=== PATIENT | male | born 1970 | race Two or more races ===

== ENCOUNTER 2020-07-01 12:49 | Inpatient (IN) | payer OTHER ==
[~2020-07-01] VITALS: Ht 172.7 cm; Wt 89.5 kg
[2020-07-01 14:22] LABS: BASOPHILS % 1.4 % (0.0-2.0); EOSINOPHILS % 2.7 % (0.0-5.0); HEMATOCRIT. 41.1 % (42.0-52.0); HEMOGLOBIN. 13.3 g/dL (14.0-18.0); LYMPHOCYTES % 12.8 % (20.0-50.0); MEAN CORPUSCULAR HEMOGLOBIN 29.1 pg (28.0-32.0); MEAN CORPUSCULAR VOLUME 89.9 fL (80.0-94.0); MEAN PLATELET VOLUME 9.2 fl (7.4-10.4); MONOCYTES % 8.4 % (2.0-8.0); NEUTROPHILS % 74.7 % (40.0-76.0); PLATELET 315 x1000/uL (130-400); RED BLOOD CELL COUNT 4.57 mill/uL (4.7-6.1); RED CELL DISTRIBUTION WIDTH 14.8 % (11.6-14.6)
[2020-07-01 14:31] LABS: CHLORIDE 106 mEq/L (98-107)
[2020-07-01 14:32] LABS: PROTHROMBIN TIME 10.4 sec (9.6-11.0)
[2020-07-01] MEDS ORDERED: FUROSEMIDE 100MG/10ML VIAL IVP NR (16:00)
[2020-07-01] MEDS ORDERED: NITROGLYCERIN OINT 1GM/INCH UDPKT TD NR (16:00)
[2020-07-01] MEDS ORDERED: IOHEXOL-350 100 ML BOTTLE ONE (18:21)
[2020-07-01] MEDS ORDERED: TELM80TA8 MT (18:30)
[2020-07-01] MEDS ORDERED: METF-816 MT (18:30)
[2020-07-01 20:30] VITALS: BP 167/105
[2020-07-01] MEDS ORDERED: DEXTROSE 50% WATER 50ML SYRINGE IV PRN (21:00)
[2020-07-01] MEDS ORDERED: HEPARIN 100 UNITS/1 ML VIAL IVF SCH (21:00)
[2020-07-01] MEDS: INSULIN LISPRO 100 UNITS/ML SUBCUT SCH (21:00)
[2020-07-01] MEDS: BLOOD SUGAR DIAGNOSTIC STRIP TEST SCH (21:22)
[2020-07-01] MEDS: LOSARTAN POTASSIUM 50 MG TABLET PO SCH (21:26)
[2020-07-01 21:34] LABS: BASOPHILS % 1.2 % (0.0-2.0); EOSINOPHILS % 2.9 % (0.0-5.0); HEMATOCRIT. 38.1 % (42.0-52.0); HEMOGLOBIN. 12.3 g/dL (14.0-18.0); MEAN CORPUSCULAR HEMOGLOBIN 28.8 pg (28.0-32.0); MEAN CORPUSCULAR VOLUME 89.2 fL (80.0-94.0); MEAN PLATELET VOLUME 8.6 fl (7.4-10.4); MONOCYTES % 9.2 % (2.0-8.0); NEUTROPHILS % 72.7 % (40.0-76.0); PLATELET 308 x1000/uL (130-400); RED BLOOD CELL COUNT 4.27 mill/uL (4.7-6.1); RED CELL DISTRIBUTION WIDTH 14.9 % (11.6-14.6)
[2020-07-01 21:35] LABS: CHLORIDE 104 mEq/L (98-107)
[2020-07-01 23:21] LABS: BG BASE EXCESS 4.7 mmol/L (-2.0-2.0); BG CARBOXYHEMOGLOBIN 0.8 % (0.5-1.5); BG DEOXYHEMOGLOBIN 7.2 % (0.0-5.0); BG FRACTION INSPIRED OXYGEN 21; BG HCO3 ACT 30.1 mmol/L (22.0-26.0); BG METHEMOGLOBIN 0.3 % (0.0-1.5); BG OXYGEN SATURATION 92.7 % (92.0-98.5); BG OXYHEMOGLOBIN 91.7 % (94.0-97.0); BG PCO2 47.8 mmHg (35.0-45.0); BG PH 7.417 (7.350-7.450); BG PO2 64.6 mmHg (75.0-100.0); BG SAMPLE SITE RIGHT BRACHIAL; BG TOTAL HEMOGLOBIN 13.6 g/dL (12.0-18.0); BG VENT MODE ROOM AIR
[2020-07-02] VITALS: BP 162/107
[2020-07-02 04:00] VITALS: BP 141/78
[2020-07-02] MEDS: SODIUM CHLORIDE 0.9% INJ 3ML FLUSH IVF SCH ×3 (06:00→20:43)
[2020-07-02] MEDS: INSULIN LISPRO 100 UNITS/ML SUBCUT SCH ×4 (07:40→20:53)
[2020-07-02] MEDS: BLOOD SUGAR DIAGNOSTIC STRIP TEST SCH ×4 (07:47→20:07)
[2020-07-02 08:00] VITALS: BP 176/105
[2020-07-02] MEDS: POTASSIUM CHLORIDE 20MEQ TABLET SR PO SCH (09:00)
[2020-07-02] MEDS: FUROSEMIDE 20MG/2ML VIAL IVP SCH (09:00)
[2020-07-02] MEDS: ENOXAPARIN 40MG/0.4ML SYR SUBCUT SCH (09:00)
[2020-07-02] MEDS: LOSARTAN POTASSIUM 50 MG TABLET PO SCH (09:00)
[2020-07-02] MEDS ORDERED: AMLODIPINE 10MG TABLET PO NR (12:00)
[2020-07-02 12:03] VITALS: BP 160/104
[2020-07-02] MEDS ORDERED: REGADENOSON 0.4 MG/5 ML IV SCH (13:15)
[2020-07-02] MEDS: ASPIRIN 81MG EC TABLET PO SCH (13:22)
[2020-07-02 14:34] LABS: HEMATOCRIT. 37.9 % (42.0-52.0); HEMOGLOBIN. 12.4 g/dL (14.0-18.0); MEAN CORPUSCULAR HEMOGLOBIN 29.2 pg (28.0-32.0); MEAN CORPUSCULAR VOLUME 89.4 fL (80.0-94.0); MEAN PLATELET VOLUME 8.7 fl (7.4-10.4); PLATELET 316 x1000/uL (130-400); RED BLOOD CELL COUNT 4.25 mill/uL (4.7-6.1); RED CELL DISTRIBUTION WIDTH 14.7 % (11.6-14.6)
[2020-07-02 14:40] LABS: CHLORIDE 103 mEq/L (98-107)
[2020-07-02 16:00] VITALS: BP 135/83
[2020-07-02] MEDS: CLONIDINE 0.1MG TABLET PO SCH (18:04)
[2020-07-02 18:50] LABS: PLATELET ESTIMATE NORMAL
[2020-07-02 20:00] VITALS: BP 135/88
[2020-07-02] MEDS: AMLODIPINE 5MG TABLET PO SCH (20:44)
[2020-07-02] MEDS ORDERED: PNEUMOCOCCAL 23-VAL P-SAC VAC 0.5 ML IM ONE (22:00)
[2020-07-03] VITALS (7 sets, daily range): BP systolic 127–158; BP diastolic 86–102
[2020-07-03] MEDS: BLOOD SUGAR DIAGNOSTIC STRIP TEST SCH ×4 (05:29→20:31)
[2020-07-03] MEDS: INSULIN LISPRO 100 UNITS/ML SUBCUT SCH ×4 (05:37→21:29)
[2020-07-03] MEDS: CLONIDINE 0.1MG TABLET PO SCH ×3 (05:38→13:08)
[2020-07-03 05:55] LABS: CHLORIDE 105 mEq/L (98-107)
[2020-07-03] MEDS: SODIUM CHLORIDE 0.9% INJ 3ML FLUSH IVF SCH ×2 (06:01→13:08)
[2020-07-03 06:51] LABS: BASOPHILS % 1.4 % (0.0-2.0); EOSINOPHILS % 5.1 % (0.0-5.0); HEMATOCRIT. 37.1 % (42.0-52.0); LYMPHOCYTES % 17.9 % (20.0-50.0); MEAN CORPUSCULAR HEMOGLOBIN 28.8 pg (28.0-32.0); MEAN PLATELET VOLUME 8.9 fl (7.4-10.4); MONOCYTES % 12.7 % (2.0-8.0); NEUTROPHILS % 62.9 % (40.0-76.0); PLATELET 290 x1000/uL (130-400); RED BLOOD CELL COUNT 4.16 mill/uL (4.7-6.1); RED CELL DISTRIBUTION WIDTH 14.4 % (11.6-14.6)
[2020-07-03] MEDS: AMLODIPINE 5MG TABLET PO SCH (09:17)
[2020-07-03] MEDS: POTASSIUM CHLORIDE 20MEQ TABLET SR PO SCH (09:17)
[2020-07-03] MEDS: LOSARTAN POTASSIUM 50 MG TABLET PO SCH (09:17)
[2020-07-03] MEDS: FUROSEMIDE 20MG/2ML VIAL IVP SCH (09:17)
[2020-07-03] MEDS: ASPIRIN 81MG EC TABLET PO SCH (09:17)
[2020-07-03] MEDS: ENOXAPARIN 40MG/0.4ML SYR SUBCUT SCH (09:18)
[2020-07-03] MEDS ORDERED: REGADENOSON 0.4 MG/5 ML IV ONE (10:01)
[2020-07-03] MEDS ORDERED: FURO-152 MT (12:00)
[2020-07-03] MEDS ORDERED: HYDR-4134 MT (12:00)
[2020-07-03] MEDS ORDERED: BLOO1KIT74 TP (12:00)
[2020-07-03] MEDS ORDERED: AMLO5TAB4 PO (12:00)
[2020-07-03] MEDS ORDERED: COR3 MT (12:24)
[2020-07-03] MEDS ORDERED: LOSA50TA3 MT (12:27)
[2020-07-03] MEDS ORDERED: CARVEDILOL 3.125 MG TABLET PO SCH (12:30)
[2020-07-03] MEDS ORDERED: FUROSEMIDE 40MG TABLET PO SCH (13:30)
[2020-07-03] MEDS ORDERED: FLAS1EAC2 TP (13:56)
[2020-07-03] MEDS ORDERED: LANC1COM2 MC (13:56)
[2020-07-03 16:05] LABS: CLARITY URINE CLEAR (CLEAR); COLOR URINE YELLOW (YELLOW); KETONES URINE NEGATIVE (NEGATIVE); LEUKOCYTE ESTERASE URINE NEGATIVE (NEGATIVE); NITRITE URINE NEGATIVE (NEGATIVE); OCCULT BLOOD URINE 1+ (NEGATIVE); PH URINE 7.5 (4.5-8.0); PROTEIN URINE 3+ (NEGATIVE); SPECIFIC GRAVITY URINE 1.014 (1.005-1.030); UROBILINOGEN URINE 0.2 E.U./dL (0.2-1.0)
[2020-07-03 16:33] LABS: METHADONE URINE SCREEN NEGATIVE (NEGATIVE)
[2020-07-03 16:35] LABS: *AMPHETAMINES SCREEN URINE NEGATIVE (NEGATIVE); *BARBITURATES SCREEN URINE NEGATIVE (NEGATIVE); *BENZODIAZEPINES SCREEN URINE NEGATIVE (NEGATIVE)
[2020-07-03 16:36] LABS: *COCAINE SCREEN URINE NEGATIVE (NEGATIVE); CANNABINOID URINE SCREEN PRESUMTIVE POSITIVE (NEGATIVE); OPIATES URINE SCREEN NEGATIVE (NEGATIVE); PHENCYCLIDINE URINE SCREEN NEGATIVE (NEGATIVE)
[2020-07-03] MEDS ORDERED: LORAZEPAM 2MG/ML CPJ IV PRN (16:45)
[2020-07-03] MEDS ORDERED: ACETAMINOPHEN 325MG TABLET PO PRN (16:45)
[2020-07-03] MEDS ORDERED: HYDRALAZINE 20MG/ML VIAL IV PRN (16:45)
[2020-07-03] MEDS ORDERED: IPRATROPIUM/ALBUTEROL 0.5-3(2.5)MG/3ML NEB HHN PRN (16:45)
[2020-07-03] MEDS ORDERED: LACTULOSE 20G/30ML UDC PO PRN (16:45)
[2020-07-03] MEDS ORDERED: MORPHINE SULFATE 2 MG/ML CPJ (NOT FOR IM USE) IV PRN (16:45)
[2020-07-03] MEDS ORDERED: ACETAMINOPHEN 650MG SUPP PR PRN (16:45)
[2020-07-03] MEDS ORDERED: DIPHENHYDRAMINE 50MG/ML VIAL IV PRN (16:45)
[2020-07-03 18:32] LABS: HEPATITIS B SURFACE ANTIGEN NEGATIVE
[2020-07-03 19:02] LABS: HEPATITIS A AB IGM NEGATIVE (NEGATIVE)
[2020-07-03] MEDS: FUROSEMIDE 40MG/4ML VIAL IVP SCH (20:21)
[2020-07-03] MEDS ORDERED: ATORVASTATIN CALCIUM 10MG TABLET PO SCH (21:00)
[2020-07-03] MEDS ORDERED: FAMOTIDINE 20MG TABLET PO SCH (21:00)
[2020-07-04] VITALS: BP 113/76
[2020-07-04] MEDS: CARVEDILOL 3.125 MG TABLET PO SCH ×2 (00:27→09:44)
[2020-07-04] MEDS: AMLODIPINE 5MG TABLET PO SCH ×2 (00:28→09:43)
[2020-07-04] MEDS: CLONIDINE 0.1MG TABLET PO SCH ×2 (00:30→05:59)
[2020-07-04] MEDS: SODIUM CHLORIDE 0.9% INJ 3ML FLUSH IVF SCH ×2 (00:30→05:58)
[2020-07-04] MEDS ORDERED: DEXT 5%/0.45% NACL 1000ML 1,000 ML IV SCH (01:00)
[2020-07-04 05:00] VITALS: BP 137/86
[2020-07-04] MEDS: BLOOD SUGAR DIAGNOSTIC STRIP TEST SCH ×2 (05:44→12:21)
[2020-07-04] MEDS: INSULIN LISPRO 100 UNITS/ML SUBCUT SCH ×2 (05:59→12:22)
[2020-07-04 06:38] LABS: CHLORIDE 103 mEq/L (98-107)
[2020-07-04 06:50] LABS: TOTAL IRON BINDING CAPACITY 290 ug/dL (250-450)
[2020-07-04 07:02] LABS: HEMOGLOBIN. 12.4 g/dL (14.0-18.0); MEAN CORPUSCULAR HEMOGLOBIN 28.7 pg (28.0-32.0); MEAN CORPUSCULAR VOLUME 88.3 fL (80.0-94.0); PLATELET 305 x1000/uL (130-400); RED CELL DISTRIBUTION WIDTH 14.4 % (11.6-14.6)
[2020-07-04 08:00] VITALS: BP 136/87
[2020-07-04] MEDS: ASPIRIN 81MG EC TABLET PO SCH (09:43)
[2020-07-04] MEDS: LOSARTAN POTASSIUM 50 MG TABLET PO SCH (09:43)
[2020-07-04] MEDS: ENOXAPARIN 40MG/0.4ML SYR SUBCUT SCH (09:45)
[2020-07-04] MEDS: FUROSEMIDE 40MG/4ML VIAL IVP SCH (11:10)
[2020-07-04 11:47] VITALS: BP 125/80
[2020-07-04 12:32] VITALS: BP 125/80
[2020-07-05 05:09] LABS: HIV SCREEN 4G Non Reactive (Non Reactive)
[2020-07-05 12:41] LABS: PLATELET ESTIMATE NORMAL
== END 2020-07-04 13:30 | disposition home or self-care (01) | DRG 291 ==
LOC: ER 12:49 → 8WST 18:02 → EDBEDREQ 18:04 → EDBEDREQTM 18:04 → ENRESERV 19:34 → 8WST 07-02 00:57
PROVIDERS: ADMIT Internal Medicine; ATTEND Internal Medicine
DX: I13.0 Hypertensive heart and chronic kidney disease with heart failure and stage 1 through stage 4 chronic kidney disease, or unspecified chronic kidney disease (principal); I50.23 Acute on chronic systolic (congestive) heart failure; I31.3 Pericardial effusion (noninflammatory); E44.1 Mild protein-calorie malnutrition; I42.8 Other cardiomyopathies; N49.2 Inflammatory disorders of scrotum; I16.0 Hypertensive urgency; I50.82 Biventricular heart failure; I25.10 Atherosclerotic heart disease of native coronary artery without angina pectoris; K57.90 Diverticulosis of intestine, part unspecified, without perforation or abscess without bleeding; N43.3 Hydrocele, unspecified; R09.02 Hypoxemia; D64.9 Anemia, unspecified; E78.5 Hyperlipidemia, unspecified; I27.20 Pulmonary hypertension, unspecified; K56.41 Fecal impaction; K80.20 Calculus of gallbladder without cholecystitis without obstruction; E11.65 Type 2 diabetes mellitus with hyperglycemia; N50.89 Other specified disorders of the male genital organs; E11.22 Type 2 diabetes mellitus with diabetic chronic kidney disease; N18.9 Chronic kidney disease, unspecified; N28.1 Cyst of kidney, acquired; Z79.82 Long term (current) use of aspirin; Z79.899 Other long term (current) drug therapy; I25.2 Old myocardial infarction; Z82.3 Family history of stroke; Z82.49 Family history of ischemic heart disease and other diseases of the circulatory system; Z82.5 Family history of asthma and other chronic lower respiratory diseases; Z79.4 Long term (current) use of insulin; I25.9 Chronic ischemic heart disease, unspecified; Z68.30 Body mass index [BMI] 30.0-30.9, adult; I07.1 Rheumatic tricuspid insufficiency
CPT/HCPCS: 36415; 36600; 71045; 71275; 76700; 76870; 78452; 80048; 80053; 80061; 80305; 81003; 82375; 82805; 82962; 83036; 83540; 83550; 83880; 84443; 84484; 85025; 85651; 86038; 86140; 86705; 86709; 86803; 87340; 87389; 90732; 93005; 93017; 93306; 93970; 93976; 96374; 99285; A9500; J1650; J1815; J1940; J2785; Q9967

== ENCOUNTER 2020-07-20 12:04 | Inpatient (IN) | payer OTHER ==
[~2020-07-20] VITALS: Ht 172.7 cm; Wt 70.9 kg
[~2020-07-20 12:04] MED LIST: BLOO1KIT74 TP; COR3 MT; FLAS1EAC2 TP; FURO-152 MT; LANC1COM2 MC; LOSA50TA3 MT; METF-816 MT
[2020-07-20] MEDS ORDERED: CANA100T MT (12:17)
[2020-07-20] MEDS ORDERED: CARV6.2548 MT (12:17)
[2020-07-20] MEDS ORDERED: SACU1TAB PO (12:17)
[2020-07-20] MEDS ORDERED: SODIUM CHLORIDE 0.9% 1,000 ML IV ONE ×3 (13:14→14:45)
[2020-07-20 13:29] LABS: CHLORIDE 102 mEq/L (98-107); EOSINOPHILS % 1.8 % (0.0-5.0); HEMATOCRIT. 51.2 % (42.0-52.0); HEMOGLOBIN. 16.5 g/dL (14.0-18.0); LYMPHOCYTES % 9.9 % (20.0-50.0); MEAN CORPUSCULAR HEMOGLOBIN 28.7 pg (28.0-32.0); MEAN CORPUSCULAR VOLUME 89.2 fL (80.0-94.0); NEUTROPHILS % 82.3 % (40.0-76.0); PLATELET 400 x1000/uL (130-400); RED BLOOD CELL COUNT 5.74 mill/uL (4.7-6.1); RED CELL DISTRIBUTION WIDTH 14.3 % (11.6-14.6)
[2020-07-20 15:00] LABS: PROTHROMBIN TIME 10.5 sec (9.6-11.0)
[2020-07-20] MEDS ORDERED: DEXTROSE 50% WATER 50ML SYRINGE IV ONE (15:00)
[2020-07-20] MEDS ORDERED: INSULIN REGULAR (HUMULIN R) 300UNITS/3ML IV ONE (15:00)
[2020-07-20] MEDS ORDERED: SODIUM BICARBONATE 8.4% 1 MEQ/ML 50ML SYR IV ONE (15:00)
[2020-07-20 18:29] LABS: CLARITY URINE CLEAR (CLEAR); COLOR URINE YELLOW (YELLOW); KETONES URINE NEGATIVE (NEGATIVE); LEUKOCYTE ESTERASE URINE NEGATIVE (NEGATIVE); NITRITE URINE NEGATIVE (NEGATIVE); OCCULT BLOOD URINE 1+ (NEGATIVE); PROTEIN URINE 3+ (NEGATIVE); SPECIFIC GRAVITY URINE 1.022 (1.005-1.030); UROBILINOGEN URINE 0.2 E.U./dL (0.2-1.0)
[2020-07-20] MEDS ORDERED: MAGNESIUM/ALUMINUM HYDROXIDE/SIMETHICONE 30ML UDC PO PRN (19:00)
[2020-07-20] MEDS ORDERED: ONDANSETRON HCL 4MG/2ML INJ IV PRN (19:00)
[2020-07-20] MEDS ORDERED: GUAIFENESIN 200MG/10ML SUGAR FREE UDC PO PRN (19:00)
[2020-07-20] MEDS ORDERED: ACETAMINOPHEN 650MG/20.3ML UDC GT PRN (19:00)
[2020-07-20] MEDS ORDERED: NA PHOS,M-B/NA PHOS,DI-BA ENEMA 118ML PR PRN (19:00)
[2020-07-20] MEDS ORDERED: DOCUSATE SODIUM 100MG CAPSULE PO PRN (19:00)
[2020-07-20] MEDS ORDERED: DIPHENHYDRAMINE 50MG/ML VIAL IV PRN (19:00)
[2020-07-20] MEDS ORDERED: HYDROCODONE/ACETAMINOPHEN 5/325MG TABLET PO PRN (19:00)
[2020-07-20] MEDS ORDERED: IPRATROPIUM/ALBUTEROL 0.5-3(2.5)MG/3ML NEB NEB PRN (19:00)
[2020-07-20] MEDS ORDERED: LORAZEPAM 0.5MG TABLET PO PRN (19:00)
[2020-07-20] MEDS ORDERED: DEXTROSE 50% WATER 50ML SYRINGE IV PRN (19:00)
[2020-07-20] MEDS ORDERED: CLONIDINE 0.1MG TABLET PO PRN (19:00)
[2020-07-20] MEDS: INSULIN LISPRO 100 UNITS/ML SUBCUT SCH (21:00)
[2020-07-20] MEDS: BLOOD SUGAR DIAGNOSTIC STRIP TEST SCH (21:27)
[2020-07-20] MEDS: FAMOTIDINE 20MG TABLET PO SCH (21:38)
[2020-07-20 22:03] VITALS: BP_SYST 110; BP_SYST 129; BP_DIAS 73; BP_DIAS 85
[2020-07-20 23:21] LABS: *BARBITURATES SCREEN URINE NEGATIVE (NEGATIVE); CANNABINOID URINE SCREEN NEGATIVE (NEGATIVE); OPIATES URINE SCREEN NEGATIVE (NEGATIVE); PHENCYCLIDINE URINE SCREEN NEGATIVE (NEGATIVE)
[2020-07-20 23:22] LABS: *AMPHETAMINES SCREEN URINE NEGATIVE (NEGATIVE); *BENZODIAZEPINES SCREEN URINE NEGATIVE (NEGATIVE); *COCAINE SCREEN URINE NEGATIVE (NEGATIVE); METHADONE URINE SCREEN NEGATIVE (NEGATIVE)
[2020-07-21] VITALS: BP 144/89
[2020-07-21 00:27] LABS: CREATINE KINASE 55 IU/L (39-308)
[2020-07-21 00:28] LABS: CREATINE KINASE MB FRACTION 1.9 ng/mL (0.5-3.6)
[2020-07-21 04:00] VITALS: BP 133/82
[2020-07-21] MEDS: BLOOD SUGAR DIAGNOSTIC STRIP TEST SCH ×4 (06:23→21:02)
[2020-07-21] MEDS: INSULIN LISPRO 100 UNITS/ML SUBCUT SCH ×4 (06:24→21:08)
[2020-07-21 07:59] LABS: BASOPHILS % 1.1 % (0.0-2.0); EOSINOPHILS % 4.2 % (0.0-5.0); HEMATOCRIT. 44.6 % (42.0-52.0); HEMOGLOBIN. 14.5 g/dL (14.0-18.0); LYMPHOCYTES % 15.3 % (20.0-50.0); MEAN CORPUSCULAR HEMOGLOBIN 28.9 pg (28.0-32.0); MEAN CORPUSCULAR VOLUME 88.6 fL (80.0-94.0); MEAN PLATELET VOLUME 9.6 fl (7.4-10.4); MONOCYTES % 6.8 % (2.0-8.0); NEUTROPHILS % 72.6 % (40.0-76.0); PLATELET 310 x1000/uL (130-400); RED BLOOD CELL COUNT 5.03 mill/uL (4.7-6.1); RED CELL DISTRIBUTION WIDTH 14.2 % (11.6-14.6)
[2020-07-21 08:00] VITALS: BP 116/80
[2020-07-21 08:00] LABS: CHLORIDE 107 mEq/L (98-107)
[2020-07-21 08:25] LABS: LDL CHOLESTEROL 214 mg/dL (5-100)
[2020-07-21 08:26] LABS: CREATINE KINASE 53 IU/L (39-308); CREATINE KINASE MB FRACTION 1.6 ng/mL (0.5-3.6); HDL CHOLESTEROL 43 mg/dL (40-59)
[2020-07-21 08:27] LABS: T4 FREE 1.01 ng/dL (0.76-1.46)
[2020-07-21] MEDS: ASPIRIN 81MG EC TABLET PO SCH (09:45)
[2020-07-21] MEDS: SACUBITRIL/VALSARTAN 49MG/51MG TABLET PO SCH ×2 (11:38→21:02)
[2020-07-21 12:00] VITALS: BP_SYST 120; BP_SYST 146; BP_SYST 149; BP_DIAS 85; BP_DIAS 96; BP_DIAS 97
[2020-07-21 16:00] VITALS: BP_SYST 124; BP_SYST 144; BP_SYST 146; BP_DIAS 74; BP_DIAS 88; BP_DIAS 96
[2020-07-21 20:00] VITALS: BP_SYST 149; BP_SYST 159; BP_SYST 169; BP_DIAS 100; BP_DIAS 96; BP_DIAS 97
[2020-07-21] MEDS ORDERED: ATORVASTATIN CALCIUM 40MG TABLET PO SCH (21:00)
[2020-07-21] MEDS ORDERED: ATORVASTATIN CALCIUM 10MG TABLET PO SCH (21:00)
[2020-07-21] MEDS: FAMOTIDINE 20MG TABLET PO SCH (21:02)
[2020-07-21] MEDS: CARVEDILOL 6.25 MG TABLET PO SCH (21:02)
[2020-07-22] VITALS: BP 128/82
[2020-07-22 04:00] VITALS: BP 110/72
[2020-07-22] MEDS: BLOOD SUGAR DIAGNOSTIC STRIP TEST SCH ×2 (06:34→11:45)
[2020-07-22] MEDS: INSULIN LISPRO 100 UNITS/ML SUBCUT SCH ×2 (06:38→12:54)
[2020-07-22 07:06] LABS: EOSINOPHILS % 4.7 % (0.0-5.0); HEMOGLOBIN. 14.1 g/dL (14.0-18.0); LYMPHOCYTES % 20.2 % (20.0-50.0); MEAN CORPUSCULAR HEMOGLOBIN 28.8 pg (28.0-32.0); MEAN CORPUSCULAR VOLUME 88.1 fL (80.0-94.0); MEAN PLATELET VOLUME 9.5 fl (7.4-10.4); MONOCYTES % 9.4 % (2.0-8.0); NEUTROPHILS % 64.7 % (40.0-76.0); PLATELET 296 x1000/uL (130-400); RED BLOOD CELL COUNT 4.89 mill/uL (4.7-6.1); RED CELL DISTRIBUTION WIDTH 14.3 % (11.6-14.6)
[2020-07-22 08:00] VITALS: BP 130/75
[2020-07-22] MEDS: ASPIRIN 81MG EC TABLET PO SCH (09:05)
[2020-07-22] MEDS: SACUBITRIL/VALSARTAN 49MG/51MG TABLET PO SCH (09:06)
[2020-07-22] MEDS: CARVEDILOL 6.25 MG TABLET PO SCH (09:06)
[2020-07-22 12:00] VITALS: BP 122/77
[2020-07-22] MEDS ORDERED: LIP40 PO (14:41)
[2020-07-22 16:00] VITALS: BP 104/71
[2020-07-22 16:34] VITALS: BP 104/71
== END 2020-07-22 17:40 | disposition home or self-care (01) | DRG 74 ==
LOC: ER 12:04 → 5WST 15:45 → ENRESERV 21:07
PROVIDERS: ADMIT Internal Medicine; ATTEND Internal Medicine
DX: G90.8 Other disorders of autonomic nervous system (principal); I13.0 Hypertensive heart and chronic kidney disease with heart failure and stage 1 through stage 4 chronic kidney disease, or unspecified chronic kidney disease; I31.3 Pericardial effusion (noninflammatory); I42.9 Cardiomyopathy, unspecified; I95.1 Orthostatic hypotension; D64.9 Anemia, unspecified; D72.829 Elevated white blood cell count, unspecified; E11.22 Type 2 diabetes mellitus with diabetic chronic kidney disease; E11.65 Type 2 diabetes mellitus with hyperglycemia; E78.1 Pure hyperglyceridemia; E78.5 Hyperlipidemia, unspecified; E87.5 Hyperkalemia; I27.20 Pulmonary hypertension, unspecified; I50.9 Heart failure, unspecified; K57.90 Diverticulosis of intestine, part unspecified, without perforation or abscess without bleeding; K80.20 Calculus of gallbladder without cholecystitis without obstruction; N18.3 Chronic kidney disease, stage 3 (moderate); Z91.14 Patient's other noncompliance with medication regimen; Z91.19 Patient's noncompliance with other medical treatment and regimen; Z79.899 Other long term (current) drug therapy
CPT/HCPCS: 36415; 71045; 80048; 80053; 80061; 80305; 81003; 82550; 82553; 82962; 83036; 84145; 84153; 84439; 84443; 84484; 85025; 93005; 93970; 97162; 99291; J1815; J3490; J7030; G0103